=== PATIENT | male | born 1965 | race Caucasian/White ===

== ENCOUNTER 2017-07-04 20:45 | Emergency (ER) | payer BC ==
[~2017-07-04] VITALS: Ht 167.6 cm; Wt 67.0 kg
[2017-07-04 21:32] VITALS: BP 151/70; PULSE 60; RESP 18; TEMP 98.7; O2SAT 100
[2017-07-04 23:31] VITALS: BP 150/83; PULSE 66; RESP 18; O2SAT 99
[2017-07-04] MEDS ORDERED: LIDOCAINE 1%/EPINEPHrine 1:100,000 SOLN 30 ML VIAL ONE (23:33)
--- NOTE | 2017-07-04 23:38 | PD ---
HPI Chief Complaint: Laceration/Skin Injury Time Seen by Provider: 23:27 Travel History International Travel<30 days: No Contact w/Intl Traveler<30days: No Traveled to known affect area: No History of Present Illness HPI 52-year-old male presents for evaluation of facial injury. He reports that prior to arrival [place] the skating r[place] cur[place] when he slipped and fell, hitting his face against the ground. There is no loss of consciousness. He sustained a laceration to the right eyebrow. He reports mild right-sided facial pain with the associated laceration, aching, worse with palpation. Denies any headache, vomiting, blurred vision, neck or back pain. His last tetanus vaccination was 7 years ago. He is not on any blood thinning medications. No other complaints at this time. [facility] Past Medical History Medical History: Denies Significant Hx Diminished Hearing: No Tetanus Vaccination: > 5 Years Past Surgical History Oral Surgery: Yes (WISDOM TEETH REMOVED) Social History Alcohol Use: Yes (OCC) Tobacco Use: No Substance Use: No Allergies-Medications (Allergen,Severity, Reaction): Coded Allergies: No Known Allergies (Unverified , 07/04/17) Reported Meds & Prescriptions Reported Meds & Active Scripts Active No Active Prescriptions or Reported Medications Review of Systems Except as stated in HPI: all other systems reviewed are Neg Physical Exam Narrative GENERAL: Well-developed well-nourished male in no acute distress SKIN: Warm and dry. 2 cm horizontal jagged laceration to the right eyebrow HEAD: Skin as noted above. Normocephalic. EYES: Pupils equal and round reactive to light extraocular muscles are intact. No scleral icterus. No injection or drainage. ENT: No nasal bleeding or discharge. Mucous membranes pink and moist. NECK: Trachea midline. No JVD. CARDIOVASCULAR: Regular rate and rhythm. No murmur appreciated. RESPIRATORY: No accessory muscle use. Clear to auscultation. Breath sounds equal bilaterally. GASTROINTESTINAL: Abdomen soft, non-tender, nondistended. Hepatic and splenic margins not palpable. MUSCULOSKELETAL: No obvious deformities. No tenderness to palpation along the neck or back. NEUROLOGICAL: Awake and alert. No obvious cranial nerve deficits. Motor grossly within normal limits. Normal speech. Data Data Last Documented VS Vital Signs Date Time Temp Pulse Resp B/P (MAP) Pulse Ox O2 Delivery O2 Flow Rate FiO2 07/04/17 23:31 66 18 150/83 (105) 99 Room Air 07/04/17 21:32 98.7 Orders Orders Lidocai-Epi 1%-1:100,000 Inj (Xylocaine- (07/04/17 23:45) Tetanus/Diphtheria Tox Adult (Tetanus/Di (07/04/17 23:45) Lidocai-Epi 1%-1:100,000 Inj (Xylocaine- (07/04/17 23:33) Ct Orbits W/O Iv Contrast (07/04/17 ) MDM Medical Decision Making Medical Screen Exam Complete: Yes Emergency Medical Condition: Yes Medical Record Reviewed: Yes Differential Diagnosis Facial laceration, facial fracture, tissue avulsion Narrative Course CT of the facial bones has been ordered, tetanus status updated, the laceration will be repaired with sutures, he verbally consents. Procedures Procedure Narrative LACERATION LOCATION: Face LENGTH: 2 cm NUMBER OF STITCHES/GIN: 7 REPAIR: The area of the laceration was prepped with Betadine and sterilely draped. The laceration was infiltrated with 1% lidocaine with epinephrine. The wound was copiously irrigated and explored without evidence of foreign body , tendon injury or neurovascular injury. The wound was closed using 6-0 nylon simple interrupted this was a single layer repair. A sterile dressing was applied. The patient was advised to keep the dressing clean and dry. Patient tolerated the procedure well. Diagnosis Primary Impression: Facial laceration Additional Instructions: Wash the wound gently with soap and water and apply antibiotic cream daily. Return in 5-7 days for suture removal. Med/Other Pt SpecificInfo: Wound Care Scripts No Active Prescriptions or Reported Meds Disposition: 01 DISCHARGE HOME Condition: Stable Alberto Gomez Jul 04, 2017 23:38
[2017-07-04] MEDS ORDERED: LIDOCAINE 1%/EPINEPHrine 1:100,000 SOLN 20 ML VIAL INFIL ONE (23:45)
[2017-07-04] MEDS ORDERED: TETANUS/DIPHTHERIA TOXOID ADULT 0.5 ML VIAL IM ONE (23:45)
--- NOTE | 2017-07-05 01:31 | RADRPT ---
EXAM DATE/TIME: 07/05/2017 00:41 [place] COMPARISON: No previous studies available for comparison. INDICATIONS : Right facial laceration after falling. RADIATION DOSE: 29.38 CTDIvol (mGy) MEDICAL HISTORY : None SURGICAL HISTORY : None. ENCOUNTER: Initial ACUITY: 1 day PAIN SCORE: 4/10 LOCATION: Left superior orbit TECHNIQUE: Volumetric scanning of the orbits was performed. Using automated exposure control and adjustment of the mA and/or kV according to patient size, radiation dose was kept as low as reasonably achievable t o obtain optimal diagnostic quality images. DICOM format image data is available electronically for review and comparison. FINDINGS: PRESEPTAL: Minimal preseptal soft tissue prominence over the medial aspect of the right globe. GLOBES: Normal shape without wall thickening. The lens is grossly intact. EXTRAOCULAR MUSCLES: Symmetric and normal thickness. ORBITAL LIND: Intact. The greater wing of the sphenoid is intact. OPTIC NERVES: Normal size. The optic canal is not enlarged. The retroconal fat is normal in appearance. LACRIMAL GLANDS: No evidence of mass. RETROAPIACL REGION: The optic chiasm is grossly intact. The visualized portion of the cavernous sinus and brainstem is i ntact. CONCLUSION: 1. Minimal preseptal soft tissue swelling medially over the right globe. 2. Otherwise negative. No fracture. Right orbit is intact. Jerry Jackson MD on July 05, 2017 at 1:27 Board Certified Radiologist. This report was verified electronically.
== END 2017-07-05 01:50 | disposition home or self-care (01) ==
LOC: NEPD 20:45
DX: S01.111A Laceration without foreign body of right eyelid and periocular area, initial encounter (principal); Z23 Encounter for immunization; W00.0XXA Fall on same level due to ice and snow, initial encounter; Y93.29 Activity, other involving ice and snow; Y92.838 Other recreation area as the place of occurrence of the external cause
CPT/HCPCS: 12011; 70480; 90471; 90714